=== PATIENT | male | born 1985 | race African-American/Black ===

== ENCOUNTER 2018-07-24 15:58 | Inpatient (IN) | payer SELFPAY ==
[~2018-07-24] VITALS: Ht 185.4 cm; Wt 78.0 kg
[2018-07-24] MEDS ORDERED: Isovue-300 100ml vial INJ PRN (16:30)
[2018-07-24] MEDS ORDERED: Morphine Sulfate 4mg/ml Inj (IV/IM USE ONLY) IVP ONE ×2 (16:30→18:45)
[2018-07-24] MEDS ORDERED: Piperacillin/Tazobactam 3.375 GM in NS 110 ML IVPB ONE (16:30)
--- NOTE | 2018-07-24 17:04 | Emergency Room Report ---
History of Present Illness General Chief Complaint: Skin Rash/Abscess Source: Patient (Juvenal Overton) Present Illness HPI 33-year-old male patient presents ER complaining of pain due to perirectal abscess for the past week. Patient reports that he had 2 perirectal abscess', one on his left buttock and one on his right. Reports was seen by urgent care physician and had abscess drained, states drained abscess on the left side with lots of pus expressed at that time. Reports abscess on right was not drained, states has become more painful, states has not drained pus from that side. Reports was prescribed naproxen and Keflex which he has been compliant with taking. Reports pain with bowel movements. Denies fever, chest pain, shortness of breath, diarrhea, abdominal pain. Denies blood in stool. Hx of hemorrhoids. denies hx of blood disease or HIV. (Juvenal Overton) Allergies: Coded Allergies: No Known Allergies (Unverified , 07/24/18) Patient History Past Medical History: see triage record Reviewed Nursing Documentation: PMH: Agreed; PSxH: Agreed (Juvenal Overton) Nursing Documentation-PMH Past Medical History: No History, Except For (Juvenal Overton) Review of Systems All Other Systems: negative except mentioned in HPI (Juvenal Overton) Physical Exam Vital Signs Date Time Temp Pulse Resp B/P (MAP) Pulse Ox O2 Delivery O2 Flow Rate FiO2 07/24/18 16:05 98.4 94 18 128/84 99 Room Air Sp02 EP Interpretation: reviewed, normal General Appearance: well appearing, no apparent distress, alert, GCS 15, non- toxic Head: normocephalic, atraumatic Eyes: bilateral eye normal inspection, bilateral eye PERRL ENT: hearing grossly normal, normal pharynx, no angioedema, normal voice, uvula midline, moist mucus membranes Neck: full range of motion Respiratory: lungs clear, normal breath sounds, no rhonchi, no respiratory distress, no accessory muscle use, no wheezing, speaking full sentences Cardiovascular #1: regular rate, rhythm, no edema Gastrointestinal: non tender, soft, no mass, non-distended, no guarding, no rebound Rectal: other - perianal, left buttock: 1cm incision, no palpable mass, no drainage, no erythema or edema, TTP; no palable mass or eyrhtme or edema noted on right perianal area, TTP Neurologic: alert, oriented x3, responsive, motor strength/tone normal, sensory intact Psychiatric: mood/affect normal Skin: no rash Lymphatic: no adenopathy (Juvenal Overton) Medical Decision Making PA Attestation Dr. Linares is my supervising Physician whom patient management has been discussed with. (Juvenal Overton) Medicare Attestation Please note the patient's care is follow closely by myself as well and agree with the exam and findings Appropriate consultation has been made and patient requiring further inpatient care (Sourav Linares DO) Diagnostic Impression: Primary Impression: Parris-rectal abscess Additional Impression: Leukocytosis ER Course Pt. presents to the ED c/o perirectal abscess Ddx considered but are not limited to cellulitis, abscess, fistula, hemorrhoid , pilonidal cyst, contusion. Vital signs: are WNL, pt. is afebrile Due to continue pain despite outpatient management will perform CT imaging at this time. Ordered pain medication, labs, and CT pelvis. ED COURSE: Provided with morphine for pain. CBC shows elevated white blood cell count, likely due to infection. provided with Zosyn for infection CMP shows elevated creatinine, need IV contrast for evaluation of soft tissue, discus with supervising physician, OK for use. Patient provided with IV fluids. UA unremarkable, UTI unlikely, patient asymptomatic CT pelvis with contrast Posterior perirectal/perianal fluid approximately 4.5 cm which may be abscess, cystic mass, or other etiology. Discuss results with the patient. Provided patient with copy of results. Instructed patient to followup with PCP and discuss results of report with patient, discuss need for further treatment and referral. Will admit patient for perirectal abscess and leukocytosis. Provided with second dose of morphine, patient states pain symptoms improved. Consult with general surgeon who was kind enough to evaluate patient, seen and evaluated by him, agrees with plan for admission Discuss patient with Dr. Linares, patient to be admitted to . - Please note that this Emergency Department Report was dictated using [employer] technology software, occasionally this can lead to erroneous entry secondary to interpretation by the dictation equipment. Labs Test 07/24/18 16:50 07/24/18 17:50 White Blood Count 17.8 K/UL (4.8-10.8) Red Blood Count 4.59 M/UL (4.70-6.10) Hemoglobin 15.3 G/DL (14.2-18.0) Hematocrit 41.1 % (42.0-52.0) Mean Corpuscular Volume 90 FL (80-99) Mean Corpuscular Hemoglobin 33.3 PG (27.0-31.0) Mean Corpuscular Hemoglobin Concent 37.1 G/DL (32.0-36.0) Red Cell Distribution Width 11.1 % (11.6-14.8) Platelet Count 317 K/UL (150-450) Mean Platelet Volume 4.2 FL (6.5-10.1) Neutrophils (%) (Auto) 84.9 % (45.0-75.0) Lymphocytes (%) (Auto) 8.3 % (20.0-45.0) Monocytes (%) (Auto) 6.2 % (1.0-10.0) Eosinophils (%) (Auto) 0.2 % (0.0-3.0) Basophils (%) (Auto) 0.4 % (0.0-2.0) Sodium Level 139 MMOL/L (136-145) Potassium Level 3.7 MMOL/L (3.5-5.1) Chloride Level 101 MMOL/L (98-107) Carbon Dioxide Level 24 MMOL/L (21-32) Anion Gap 14 mmol/L (5-15) Blood Urea Nitrogen 16 mg/dL (7-18) Creatinine 1.5 MG/DL (0.55-1.30) Estimat Glomerular Filtration Rate 53.6 mL/min (>60) Glucose Level 105 MG/DL (74-106) Calcium Level 9.7 MG/DL (8.5-10.1) Total Bilirubin 0.6 MG/DL (0.2-1.0) Aspartate Amino Transf (AST/SGOT) 29 U/L (15-37) Alanine Aminotransferase (ALT/SGPT) 24 U/L (12-78) Alkaline Phosphatase 86 U/L (46-116) Total Protein 9.1 G/DL (6.4-8.2) Albumin 4.1 G/DL (3.4-5.0) Globulin 5.0 g/dL Albumin/Globulin Ratio 0.8 (1.0-2.7) Urine Color Brown Urine Appearance Slightly cloudy Urine pH 6.5 (4.5-8.0) Urine Specific [place] 1.015 (1.005-1.035) Urine Protein 3+ (NEGATIVE) Urine Glucose (UA) Negative (NEGATIVE) Urine Ketones 1+ (NEGATIVE) Urine Blood 1+ (NEGATIVE) Urine Nitrite Negative (NEGATIVE) Urine Bilirubin Negative (NEGATIVE) Urine Urobilinogen 1 MG/DL (0.0-1.0) Urine Leukocyte Esterase 1+ (NEGATIVE) Urine RBC 5-10 /HPF (0 - 0) Urine WBC 5-10 /HPF (0 - 0) Urine Squamous Epithelial Cells None /LPF (NONE/OCC) Urine Amorphous Sediment Few /LPF (NONE) Urine Bacteria Moderate /HPF (NONE) (Juvenal Overton) CT/MRI/US Diagnostic Results CT/MRI/US Diagnostic Results : Imaging Test Ordered: CT pelvis with contrast Impression Posterior perirectal/perianal fluid approximately 4.5 cm which may be abscess, cystic mass, or other etiology. (Juvenal Overton) Last Vital Signs Date Time Temp Pulse Resp B/P (MAP) Pulse Ox O2 Delivery O2 Flow Rate FiO2 07/24/18 16:05 98.4 94 18 128/84 99 Room Air (Juvenal Overton PTemoATemo) Disposition: ADMITTED INPATIENT Condition: Serious Juvenal Overton Jul 24, 2018 17:04 Sourav Linares DO Jul 24, 2018 20:06
[2018-07-24 17:13] VITALS: BP 128/84
[2018-07-24 17:32] LABS: ANION GAP 14 mmol/L (5-15); BLOOD UREA NITROGEN 16 mg/dL (7-18); CALCIUM 9.7 MG/DL (8.5-10.1); CARBON DIOXIDE 24 MMOL/L (21-32); CHLORIDE 101 MMOL/L (98-107); CREATININE 1.5 MG/DL (0.55-1.30); POTASSIUM 3.7 MMOL/L (3.5-5.1); SODIUM 139 MMOL/L (136-145)
[2018-07-24 17:34] LABS: BASOPHILS % (AUTO) 0.4 % (0.0-2.0); EOSINOPHILS % (AUTO) 0.2 % (0.0-3.0); HEMATOCRIT 41.1 % (42.0-52.0); HEMOGLOBIN 15.3 G/DL (14.2-18.0); LYMPHOCYTES % (AUTO) 8.3 % (20.0-45.0); MEAN CORPUSCULAR VOLUME 90 FL (80-99); MONOCYTES % (AUTO) 6.2 % (1.0-10.0); NEUTROPHILS % (AUTO) 84.9 % (45.0-75.0); PLATELET COUNT 317 K/UL (150-450); RED BLOOD COUNT 4.59 M/UL (4.70-6.10); RED CELL DISTRIBUTION WIDTH 11.1 % (11.6-14.8); WHITE BLOOD COUNT 17.8 K/UL (4.8-10.8)
[2018-07-24 17:37] LABS: ALANINE AMINOTRANSFERASE 24 U/L (12-78); ALBUMIN 4.1 G/DL (3.4-5.0); ALBUMIN/GLOBULIN RATIO 0.8 (1.0-2.7); ALKALINE PHOSPHATASE 86 U/L (46-116); ASPARTATE AMINO TRANSFERASE 29 U/L (15-37); BILIRUBIN,TOTAL 0.6 MG/DL (0.2-1.0)
[2018-07-24 18:22] LABS: APPEARANCE,URINE SLIGHTLY CLOUDY; BILIRUBIN, URINE NEGATIVE (NEGATIVE); COLOR,URINE BROWN; GLUCOSE, URINE (UA) NEGATIVE (NEGATIVE); KETONES,URINE 1+ (NEGATIVE); LEUKOCYTE ESTERASE ,URINE 1+ (NEGATIVE); NITRITE,URINE NEGATIVE (NEGATIVE); PH,URINE 6.5 (4.5-8.0); PROTEIN,URINE 3+ (NEGATIVE); UROBILINOGEN,URINE 1 MG/DL (0.0-1.0)
[2018-07-24] MEDS ORDERED: NAPROXEN500 M2 ORAL (19:02)
[2018-07-24] MEDS ORDERED: CEPHALEXIN500 M1 ORAL (19:02)
--- NOTE | 2018-07-24 19:03 | Diagnostic Imaging Report ---
EXAM: CT Pelvis With Intravenous Contrast CLINICAL HISTORY: PAIN TECHNIQUE: Axial computed tomography images of the pelvis with intravenous contrast. CTDI is 12 mGy and DLP is 438 mGy-cm. One or more of the following dose reduction techniques were used: automated exposure control, adjustment of the mA and/or kV according to patient size, use of iterative reconstruction technique. COMPARISON: No relevant prior studies available. FINDINGS: Bowel: Unremarkable as visualized. Appendix: No findings to suggest acute appendicitis. Intraperitoneal space: Unremarkable as visualized. Bladder: Mildly thickened bladder which may be underdistention versus cystitis. Reproductive: Unremarkable as visualized. Bones/joints: Right sacral 11 mm sclerotic focus which may be bone island or other etiology. No acute fracture. No dislocation. Soft tissues: Posterior perirectal/perianal fluid approximately 4.5 cm which may be abscess, cystic mass, or other etiology. Vasculature: Unremarkable as visualized. Lymph nodes: Unremarkable. No enlarged lymph nodes. IMPRESSION: Posterior perirectal/perianal fluid approximately 4.5 cm which may be abscess, cystic mass, or other etiology.
--- NOTE | 2018-07-24 19:14 | Consultation ---
History of Present Illness General Date patient seen: Jul 24, 2018 Chief Complaint: Skin Rash/Abscess Present Illness HPI 33 year old otherwise healthy male presented with worsening perirectal pain. States he noted pain a week ago and recently went to an Urgent care on [address] for evaluation. Was diagnosed with parris-rectal abscess and had I&D then given oral abx and discharged. States lots of pus drained during that procedure. Since has been okay but did not improve. Today began to have worsening pain and chills. has lost appetite and been uncomfortable. pain 10/ 10 at max and difficult to sit down. has pain in both right and left perirectal area. no drainage since I&D. no packing or dressings. Surgery called to evaluate. patient seen, chart reviewed, patient examined. leukocytosis. CT ordered Allergies: Coded Allergies: No Known Allergies (Unverified , 07/24/18) Medication History Scheduled Cephalexin* (Cephalexin*), 500 MG ORAL EVERY 6 HOURS, (Reported) Naproxen* (Naproxen*), 500 MG ORAL TWICE A DAY, (Reported) Patient History History Provided By: Patient, Medical Record, PMD Healthcare decision maker Resuscitation status Advanced Directive on File Past Medical/Surgical History Past Medical/Surgical History: (1) Parris-rectal abscess Review of Systems All Other Systems: negative except mentioned in HPI Physical Exam General Appearance: no apparent distress, alert Lines, tubes and drains: peripheral HEENT: normocephalic, atraumatic, PERRL Neck: normal inspection Respiratory/Chest: normal breath sounds, no respiratory distress, no accessory muscle use Cardiovascular/Chest: normal peripheral pulses, normal rate, regular rhythm Abdomen: normal bowel sounds, non tender, soft, no organomegaly, no mass Genitourinary/Rectal: other - prior small <1cm incision noted on left buttock parris-rectal. no large mass or fluctance noted. no induration or cellulitis evident on exam. very tender on exam which limits exam Extremities: normal range of motion, non-tender, normal inspection, no calf tenderness Skin Exam: normal pigmentation, warm/dry Neurologic: alert, oriented x 3 Last 24 Hour Vital Signs Date Time Temp Pulse Resp B/P (MAP) Pulse Ox O2 Delivery O2 Flow Rate FiO2 07/24/18 18:34 98.4 07/24/18 17:13 98.4 77 18 128/84 99 Room Air 07/24/18 16:05 98.4 94 18 128/84 99 Room Air Laboratory Tests Test 07/24/18 16:50 07/24/18 17:50 White Blood Count 17.8 K/UL (4.8-10.8) H Red Blood Count 4.59 M/UL (4.70-6.10) L Hemoglobin 15.3 G/DL (14.2-18.0) Hematocrit 41.1 % (42.0-52.0) L Mean Corpuscular Volume 90 FL (80-99) Mean Corpuscular Hemoglobin 33.3 PG (27.0-31.0) H Mean Corpuscular Hemoglobin Concent 37.1 G/DL (32.0-36.0) H Red Cell Distribution Width 11.1 % (11.6-14.8) L Platelet Count 317 K/UL (150-450) Mean Platelet Volume 4.2 FL (6.5-10.1) L Neutrophils (%) (Auto) 84.9 % (45.0-75.0) H Lymphocytes (%) (Auto) 8.3 % (20.0-45.0) L Monocytes (%) (Auto) 6.2 % (1.0-10.0) Eosinophils (%) (Auto) 0.2 % (0.0-3.0) Basophils (%) (Auto) 0.4 % (0.0-2.0) Sodium Level 139 MMOL/L (136-145) Potassium Level 3.7 MMOL/L (3.5-5.1) Chloride Level 101 MMOL/L (98-107) Carbon Dioxide Level 24 MMOL/L (21-32) Anion Gap 14 mmol/L (5-15) Blood Urea Nitrogen 16 mg/dL (7-18) Creatinine 1.5 MG/DL (0.55-1.30) H Estimat Glomerular Filtration Rate 53.6 mL/min (>60) Glucose Level 105 MG/DL (74-106) Calcium Level 9.7 MG/DL (8.5-10.1) Total Bilirubin 0.6 MG/DL (0.2-1.0) Aspartate Amino Transf (AST/SGOT) 29 U/L (15-37) Alanine Aminotransferase (ALT/SGPT) 24 U/L (12-78) Alkaline Phosphatase 86 U/L (46-116) Total Protein 9.1 G/DL (6.4-8.2) H Albumin 4.1 G/DL (3.4-5.0) Globulin 5.0 g/dL Albumin/Globulin Ratio 0.8 (1.0-2.7) L Urine Color Brown Urine Appearance Slightly cloudy Urine pH 6.5 (4.5-8.0) Urine Specific [place] 1.015 (1.005-1.035) Urine Protein 3+ (NEGATIVE) H Urine Glucose (UA) Negative (NEGATIVE) Urine Ketones 1+ (NEGATIVE) H Urine Blood 1+ (NEGATIVE) H Urine Nitrite Negative (NEGATIVE) Urine Bilirubin Negative (NEGATIVE) Urine Urobilinogen 1 MG/DL (0.0-1.0) H Urine Leukocyte Esterase 1+ (NEGATIVE) H Urine RBC 5-10 /HPF (0 - 0) H Urine WBC 5-10 /HPF (0 - 0) H Urine Squamous Epithelial Cells None /LPF (NONE/OCC) Urine Amorphous Sediment Few /LPF (NONE) H Urine Bacteria Moderate /HPF (NONE) H Height (Feet): 6 Height (Inches): 1.00 Weight (Pounds): 170 Medications Current Medications Medications (Trade) Dose Ordered Sig/Annamaria Route PRN Reason Start Time Stop Time Status Last Admin Dose Admin Iopamidol (Isovue-300 100ml) 100 ml NOW PRN INJ Radiology Procedure 07/24/18 16:30 07/26/18 16:30 Assessment/Plan Problem List: (1) Parris-rectal abscess Assessment & Plan: Deep parris-rectal abscess. incompletely drainage prior at outside facility now with leukocytosis and elevated Cr CT ordered and reviewed. - Posterior perirectal/perianal fluid approximately 4.5 cm which may be abscess, cystic mass, or other etiology. Exam limited from pain -Admit for IV abx as he has failed outpatient medical management -trend labs -will likely need drainage but first needs resuscitation and IV Abx -will follow with recs thank you ICD Codes: K61.1 - Rectal abscess SNOMED: [id number] RiasandipIsaak Jul 24, 2018 19:14
[2018-07-24 20:50] VITALS: BP 147/82
[2018-07-24] MEDS ORDERED: Morphine Sulfate 2mg/ml Inj IVP PRN (21:00)
[2018-07-25] MEDS: Morphine Sulfate 4mg/ml Inj (IV/IM USE ONLY) IVP PRN ×8 (00:02→22:09)
[2018-07-25 01:06] VITALS: BP 125/69
[2018-07-25] MEDS: Piperacillin/Tazobactam 3.375 GM in D5W 110 ML IVPB SCH ×3 (01:26→17:33)
[2018-07-25 03:54] VITALS: BP 114/63
[2018-07-25 07:58] LABS: BASOPHILS % (AUTO) 0.4 % (0.0-2.0); EOSINOPHILS % (AUTO) 0.2 % (0.0-3.0); HEMATOCRIT 36.8 % (42.0-52.0); HEMOGLOBIN 13.5 G/DL (14.2-18.0); LYMPHOCYTES % (AUTO) 6.2 % (20.0-45.0); MEAN CORPUSCULAR VOLUME 89 FL (80-99); MONOCYTES % (AUTO) 8.4 % (1.0-10.0); NEUTROPHILS % (AUTO) 84.9 % (45.0-75.0); PLATELET COUNT 224 K/UL (150-450); RED BLOOD COUNT 4.12 M/UL (4.70-6.10); RED CELL DISTRIBUTION WIDTH 10.7 % (11.6-14.8)
[2018-07-25 08:00] VITALS: BP 101/63
[2018-07-25 08:17] LABS: ANION GAP 9 mmol/L (5-15); BLOOD UREA NITROGEN 10 mg/dL (7-18); CALCIUM 8.6 MG/DL (8.5-10.1); CARBON DIOXIDE 26 MMOL/L (21-32); CHLORIDE 102 MMOL/L (98-107); CREATININE 1.1 MG/DL (0.55-1.30); POTASSIUM 3.6 MMOL/L (3.5-5.1); SODIUM 137 MMOL/L (136-145)
[2018-07-25 11:48] VITALS: BP 119/78
--- NOTE | 2018-07-25 12:44 | History and Physical Report ---
DATE OF ADMISSION: 07/24/2018 REASON FOR ADMISSION: Perirectal abscess. HISTORY OF PRESENT ILLNESS: This is a 33-year-old male presented with worsening perirectal pain. The patient noted pain over the past one week. The patient was diagnosed with perirectal abscess and had incision and drainage. Given oral antibiotics, the patient now being readmitted. The patient seen by surgery. PAST MEDICAL HISTORY: As above. MEDICATIONS: Reviewed. ALLERGIES: Reviewed. SOCIAL HISTORY: Otherwise negative for smoking, drinking. REVIEW OF SYSTEMS: Otherwise negative. PHYSICAL EXAMINATION: GENERAL: A well-developed male, complaining of pain. VITAL SIGNS: Otherwise stable. HEENT: Negative. NECK: Supple. LUNGS: Clear. CARDIAC: S1 and S2. Regular rate and rhythm. ABDOMEN: Soft and nontender. EXTREMITIES: No edema. GENITOURINARY/RECTAL: Deferred to surgery. No large mass or fluctuance noted per his examination. LABORATORY DATA: The patient's white cell count 15, hematocrit 36, and platelets of 224. Chemistries noted, essentially negative. IMPRESSION: 1. Evidence of perirectal abscess. 2. Evidence of leukocytosis. RECOMMENDATIONS: 1. Deferred to surgery. 2. The patient may need repeat drainage. 3. IV antibiotics for now. 4. ID evaluation and pain control. Russell Lund M.D. DR: KELIN JOB#: [id number] CC:
[2018-07-25] MEDS ORDERED: HYDROmorphone 1mg/ml Carpuject IVP SCH (13:59)
[2018-07-25] MEDS ORDERED: Lidocaine 1% 10mg/ml/Epi 0.005mg/ml 30ml vial INJ ONE (15:00)
--- NOTE | 2018-07-25 15:47 | Operative Note - PDOC ---
Operative Note Operative Note Date of Operation/Procedure: Jul 25, 2018 Pre-op Diagnosis: shelby-rectal abscess Procedure: incision and drainage of perirectal abscess Post-op Diagnosis: same as pre-op Surgeon: georgi Anesthesia: local Specimen: yes Complications: none Condition: stable Estimated Blood Loss: minimal Drains: none Packing: iodoform Implant(s) used?: No Indications for Procedure 33M perirectal abscess s/p prior incomplete I&D came to ED for evaluation. In ED exam benign but leukocytosis and CT with deeper abscess. Admitted for IV abx and planned for OR. This AM noted to have large area of fluctuance in posterior shelby-rectal area. Plan for bedside I&D. Consent obtained. Description of Procedure Patient made comfortable at bedside in prone position. time out taken. appropriate protective gear worn. area cleaned and prepped. 1%lido with epi infiltrated. 2cm incision made over area of fluctuance and over 50-100 cc of pus evacuated. deep cavity noted and all loculations broken up. wound irrigated with sterile saline. iodoform packing inserted and dressings applied. patient tolerated procedure. plan for partial removal of packing tomorrow. change dressing prn. Isaak Downs Jul 25, 2018 15:47
[2018-07-25 16:00] VITALS: BP 122/78
[2018-07-25 19:51] VITALS: BP 126/71
[2018-07-26] VITALS: BP 131/70
[2018-07-26] MEDS: Morphine Sulfate 4mg/ml Inj (IV/IM USE ONLY) IVP PRN ×4 (01:04→13:30)
[2018-07-26] MEDS: Piperacillin/Tazobactam 3.375 GM in D5W 110 ML IVPB SCH ×3 (01:04→16:00)
[2018-07-26 04:00] VITALS: BP 124/87
[2018-07-26 07:12] LABS: BASOPHILS % (AUTO) 0.5 % (0.0-2.0); EOSINOPHILS % (AUTO) 0.9 % (0.0-3.0); HEMATOCRIT 35.7 % (42.0-52.0); HEMOGLOBIN 12.4 G/DL (14.2-18.0); LYMPHOCYTES % (AUTO) 12.3 % (20.0-45.0); MEAN CORPUSCULAR VOLUME 89 FL (80-99); MONOCYTES % (AUTO) 8.1 % (1.0-10.0); NEUTROPHILS % (AUTO) 78.3 % (45.0-75.0); PLATELET COUNT 241 K/UL (150-450); RED BLOOD COUNT 4.01 M/UL (4.70-6.10); RED CELL DISTRIBUTION WIDTH 10.6 % (11.6-14.8); WHITE BLOOD COUNT 10.5 K/UL (4.8-10.8)
[2018-07-26 08:00] VITALS: BP 118/75
--- NOTE | 2018-07-26 08:08 | General Progress Note ---
Assessment/Plan Assessment/Plan IMPRESSION: 1. Evidence of perirectal abscess. 2. Evidence of leukocytosis. 3. s/p incision and drainage PLAN IV antibiotics wound care pain control impression, plan, and exam edited and reviewed in detail care discussed with RN Subjective Allergies: Coded Allergies: No Known Allergies (Unverified , 07/24/18) Subjective s/p I and D Objective Last 24 Hour Vital Signs Date Time Temp Pulse Resp B/P (MAP) Pulse Ox O2 Delivery O2 Flow Rate FiO2 07/26/18 04:41 98.7 07/26/18 04:00 98.0 88 20 124/87 (99) 96 07/26/18 00:00 98.7 80 20 131/70 (90) 96 07/25/18 20:27 Room Air 07/25/18 19:51 98.2 92 19 126/71 (89) 95 07/25/18 16:43 100.4 07/25/18 16:00 98.4 100 19 122/78 (93) 93 07/25/18 12:47 100.4 07/25/18 11:48 100.4 99 18 119/78 (92) 96 07/25/18 08:45 Room Air Intake and Output 07/25/18 07/26/18 19:00 07:00 Intake Total 1437.5 ml 852.5 ml Balance 1437.5 ml 852.5 ml Intake Oral 360 ml IV Total 237.5 ml 492.5 ml Other 1200 ml # Voids 4 Laboratory Tests 07/26/18 05:35: White Blood Count 10.5, Red Blood Count 4.01L, Hemoglobin 12.4L, Hematocrit 35.7L, Mean Corpuscular Volume 89, Mean Corpuscular Hemoglobin 31.0, Mean Corpuscular Hemoglobin Concent 34.9, Red Cell Distribution Width 10.6L, Platelet Count 241, Mean Platelet Volume 4.6L, Neutrophils (%) (Auto) 78.3H, Lymphocytes (%) (Auto) 12.3L, Monocytes (%) (Auto) 8.1, Eosinophils (%) (Auto) 0.9, Basophils (%) (Auto) 0.5 Height (Feet): 6 Height (Inches): 1.00 Weight (Pounds): 172 Objective GENERAL: A well-developed male, complaining of pain. HEENT: Negative. NECK: Supple. LUNGS: Clear. CARDIAC: S1 and S2. Regular rate and rhythm. ABDOMEN: Soft and nontender. EXTREMITIES: No edema. GENITOURINARY/RECTAL: Deferred to surgery. No large mass or fluctuance noted per his examination. Russell Lund MD Jul 26, 2018 08:08
[2018-07-26 12:00] VITALS: BP 119/78
--- NOTE | 2018-07-26 12:35 | General Surgery Progress Note ---
General Surgery-Progress Note Subjective Procedure Performed incision and drainage of perirectal abscess Symptoms: improved, tolerating diet, passing flatus, BM Additional Comments feels much better after drainage Objective Last 24 Hour Vital Signs Date Time Temp Pulse Resp B/P (MAP) Pulse Ox O2 Delivery O2 Flow Rate FiO2 07/26/18 08:00 97.8 76 17 118/75 (89) 97 07/26/18 08:00 Room Air 07/26/18 04:41 98.7 07/26/18 04:00 98.0 88 20 124/87 (99) 96 07/26/18 00:00 98.7 80 20 131/70 (90) 96 07/25/18 20:27 Room Air 07/25/18 19:51 98.2 92 19 126/71 (89) 95 07/25/18 16:43 100.4 07/25/18 16:00 98.4 100 19 122/78 (93) 93 07/25/18 12:47 100.4 I&O Intake and Output 07/25/18 07/26/18 19:00 07:00 Intake Total 1437.5 ml 952.5 ml Balance 1437.5 ml 952.5 ml Intake Oral 360 ml IV Total 237.5 ml 592.5 ml Other 1200 ml # Voids 4 Dressing: saturated Wound: clean Drains: none Cardiovascular: RSR Respiratory: clear Abdomen: soft, flat, non-tender, present bowel sounds Extremities: no tenderness, no cyanosis Laboratory Tests Test 07/26/18 05:35 White Blood Count 10.5 K/UL (4.8-10.8) Red Blood Count 4.01 M/UL (4.70-6.10) L Hemoglobin 12.4 G/DL (14.2-18.0) L Hematocrit 35.7 % (42.0-52.0) L Mean Corpuscular Volume 89 FL (80-99) Mean Corpuscular Hemoglobin 31.0 PG (27.0-31.0) Mean Corpuscular Hemoglobin Concent 34.9 G/DL (32.0-36.0) Red Cell Distribution Width 10.6 % (11.6-14.8) L Platelet Count 241 K/UL (150-450) Mean Platelet Volume 4.6 FL (6.5-10.1) L Neutrophils (%) (Auto) 78.3 % (45.0-75.0) H Lymphocytes (%) (Auto) 12.3 % (20.0-45.0) L Monocytes (%) (Auto) 8.1 % (1.0-10.0) Eosinophils (%) (Auto) 0.9 % (0.0-3.0) Basophils (%) (Auto) 0.5 % (0.0-2.0) Plan Problems: (1) Parris-rectal abscess Assessment & Plan: doing much better since drainage no n/v/f/c labs improved exam improved packing removed and changed today at bedside still with sensitivity in the area -d/c miriam -packing and dressings -sitz baths -rx given f/u friday at 2pm thank you Isaak Downs Jul 26, 2018 12:35
[2018-07-26 16:00] VITALS: BP 124/75
--- NOTE | 2018-07-26 20:00 | Consultation ---
DATE OF CONSULTATION: 07/26/2018 INFECTIOUS DISEASES CONSULTATION This consult is for coverage Dr. Malin. PRIMARY ATTENDING PHYSICIAN: Russell Lund M.D. REASON FOR CONSULTATION: Perirectal abscess. HISTORY OF PRESENT ILLNESS: This is a 33-year-old white male admitted on 07/24/2018 because of worsening perirectal pain. The pain has started one week before admission. The patient had incision and drainage and oral antibiotic, was discharged, but the pain become worse. The patient had chills, loss of apatite, uncomfortable, difficult to sit down, came to the hospital. The perirectal abscess was found that was drained by Dr. Downs on 07/25/2018. Now, the patient is better. PAST MEDICAL HISTORY: Not significant. ALLERGIES: No known drug allergies. MEDICATIONS: Protonix, Zosyn, morphine, Flagyl, Tylenol, sodium chloride. SOCIAL HISTORY: Single. No history of IV drug abuse, and nonsmoker. Drinks wine in the weekend. REVIEW OF SYSTEMS: No fever. No chills. No coughing. No shortness of breath. No nausea. No vomiting. Has loose stool. No diarrhea. No problem passing urine. PHYSICAL EXAMINATION: VITAL SIGNS: Temperature 100.4, pulse 99, blood pressure 119/78. GENERAL APPEARANCE: No acute distress. HEENT: Head and neck, pink conjunctiva. HEART: S1 and S2 regular. LUNGS: Clear. ABDOMEN: Soft and nontender. EXTREMITIES: No edema. SKIN: Perirectal dressing. NEUROLOGIC: Awake, alert, and oriented x3. Ambulatory. IMPRESSION: Perirectal abscess. LABORATORY AND DIAGNOSTIC DATA: WBC is 10.5 coming down from 17.8, hemoglobin 12.4, hematocrit 35.7, and platelets is 241. Sodium 137, potassium 3.6, chloride 102, bicarbonate 26, BUN 10, creatinine 1.1, glucose 112. UA, wbc's 5 to 10, rbc's 5 to 10. Wound culture growing gram-negative rods. Urine culture, no growth. CT scan of the pelvis, approximately 4.5 cm with abscess and cystic mass. IMPRESSION: 1. Perirectal abscess, status post incision and drainage. 2. Leukocytosis, resolved. 3. Low-grade fever. RECOMMENDATIONS: The patient wants to go home today. In the hospital, we will continue Zosyn. At the time of discharge, we will give the patient p.o. Flagyl and Levaquin for 7 days. We will follow up the wound culture. At the end of my exam, I thank Dr. Lund for involving me in the care of this patient. Abner Maradiaga M.D. DR: Arash JOB#: [id number] CC: [email or web address]
--- NOTE | 2018-07-27 08:11 | Discharge Summary ---
Discharge Summary Discharge Summary _ DATE OF ADMISSION: 07/24/2018 DATE OF DISCHARGE: 07/26/2018 REASON FOR ADMISSION: 33 years old male without significant past medical history , presented to emergency room complaining of rectal pain due to perirectal abscess for the past week . Apparently patient had two perirectal abscesses, and one ,on the left side ,was drained at the urgent care with lots of pus expressed. Another abscess was not drained and was becoming more painful, worse with bowel movement and in sitting position. Patient reported taking oral antibiotics and naproxen as prescribed in urgent care. He denied fever, chills, chest pain, shortness of breath ,diarrhea, abdominal pain. He denied blood in the stool. He denies history of blood disease or HIV. Patient did admit to history of hemorrhoids. Upon evaluation vital signs were stable. Laboratory workup revealed significant leukocytosis with WBC 17.8. Stable hemoglobin and hematocrit . Urinalysis revealed pyuria ,moderate bacteria . CT of the pelvis revealed posterior perirectal/perianal fluid approximately 4.5 cm. Patient admitted with diagnosis of perirectal abscess, leukocytosis. CONSULTANTS: ID specialist Dr. Mary Maradiaga surgery [facility] COURSE: Patient admitted to medical surgical floor. Patient started on on IV fluids and empiric antibiotic. Pain management was addressed. Surgery consult was requested. Patient subsequently on 07/25 undergone incision and drainage of perirectal abscess. Infectious disease specialist closely followed . Patient was on IV antibiotics while in the hospital. Wound culture ( from perirectal abscess) revealed gram negative rods. Urine culture was negative. Symptoms improved after surgery. Pain controlled. Patient was able to tolerate diet , no nausea,vomiting ,fever, or chills. Packing was removed and changed by surgeon at the bedside. Sitz bath recommended upon discharge. Infectious disease specialist recommended to change antibiotic to oral prior to discharge . Prescription for Levaquin and Flagyl provided. Leukocytosis resolved . Patient was stable for discharge home . Outpatient follow-up with surgeon on Friday at 2 PM FINAL DIAGNOSES: Perirectal abscess Leukocytosis -resolved s/p incision and drainage of perirectal abscess 07/25 DISCHARGE MEDICATIONS: Prescription given to patient DISCHARGE INSTRUCTIONS: Patient was discharged home. Outpatient follow-up with surgeon as scheduled. I have been assigned to dictate discharge summary for this account. I was not involved in the patient's management. Brooke Jones NP Jul 27, 2018 08:11
== END 2018-07-26 18:22 | disposition home or self-care (01) | DRG 346 ==
LOC: EMR 18:47 → EDBEDREQ 19:56 → 4E 20:08
PROC: 0D9P0ZZ Drainage of Rectum, Open Approach (ICD-10-PCS; principal; 2018-07-25)
DX: K61.1 Rectal abscess (principal)
CPT/HCPCS: 36415; 72193; 80048; 80053; 81003; 85025; 87070; 87086; 87181; 87205; 96361; 96365; 96375; 99285; J2405